=== PATIENT | male | born 1980 ===

== ENCOUNTER 2018-01-02 13:00 | Inpatient (IN) | payer OTHER ==
[~2018-01-02] VITALS: Ht 170.2 cm; Wt 126.8 kg
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
[2018-01-02 14:39] VITALS: BP 121/72
[2018-01-02 19:54] VITALS: BP 114/72
[2018-01-02] MEDS ORDERED: TOPAMAX100 M1 PO (20:46)
[2018-01-02] MEDS ORDERED: MULTIVITAMINS1 EAC9 PO (20:47)
[2018-01-02] MEDS ORDERED: OSTERA TABLET1 EACH (20:48)
[2018-01-02] MEDS ORDERED: OMEGA 3-6-9 11200 MG (20:52)
[2018-01-03 07:35] VITALS: BP 140/92
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
--- NOTE | 2018-01-03 16:19 | SOCIAL WORKER PROG NOTE PSYCH ---
Hernando Oro 01/03/18 1617: Social Work Progress Note Progress Note I Krishna Oro (PMO BUSINESS ANALYST [employer]) completed a social history with Jhonatan this afternoon he was calm and cooperative He appeared well groomed and was wearing hospital scrubs.
--- NOTE | 2018-01-03 16:54 | SOCIAL WORKER PROG NOTE PSYCH ---
Social Work Progress Note Progress Note This selling underwriter met with patient. Patient reports increased depression due to an upcoming anniversary of his grandmother's ; "my best friend." He denies SI. He reports occassional HI when feeling aggrevated, however, denies that this is towards anyone in particular and does not have a plan. He agreed to immediately inform staff if feeling unsafe here. He denied any current substance use and reported past MJ and alcohol use. Patient requested that this selling underwriter contact his grant officer and therapist next week.
[2018-01-03 20:03] VITALS: BP 150/78
[2018-01-04 07:45] VITALS: BP 136/83
--- NOTE | 2018-01-04 08:35 | CP SOUTH PROGRESS NOTE PSYCH ---
Psych (Inpt) Progress Note Progress Note Vital Signs Date Time Temp Pulse B/P 01/04 0745 98.3 87 136/83 01/03 2003 98.6 96 150/78 Mental Status Examination Steady gait, Patient is cooperative calm, Normal psychomotor activity. No abnormal behaviors, Talkative with mild pressure, Full range of affect, he reported that he's feeling calmer and not frustrated or angry today, He denied thinking of suicide today, denied thinking of homicide or violence today, He denied hallucinations, He denied feeling paranoid, there were no specific delusions during the interview, coherent, there was no thought disorder Impaired insight, Questionable judgment, He was alert and oriented to time place and person. Seems to have minor difficulties with information processing. No evidence of short-term memory impairment. 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 as well as posttraumatic stress disorder Impulse control disorder rule out neurocognitive disorder Treatment Plan: Cholecalciferol 1,000 IU DAILY Diazepam 10 MG AT BEDTIME Fish Oil 2,100 MG DAILY Gabapentin 600 MG TID Lorazepam 2 MG Q6P PRN Naproxen 500 MG BID PRN 01/02 1345 AC Prazosin HCl 2 MG AT BEDTIME Assets/Strengths Patient Identified Assets/Strengths: The patient is likable, is self advocating and resourceful, and honest Impression/Plan Impression and Plan: 37-year-old single black male who was admitted after he was taken to [facility] emergency room in [place] and since they have no had no beds he was transferred to [facility]'s inpatient psychiatry. 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 Looks like it was prescribed at one point to help him lose weight. But he is not interested in this medication and it was therefore discontinued and Patient also does not want Seroquel because she reported that he took multiple medications that caused him to gain weight and race his blood sugars. Which was an appropriate concern. Patient complained that he has always asked for medications for anxiety which is very intense and that he was always been frustrated by people refusing to prescribe for him medications that help his anxiety Therefore I gave the patient 1 dose of diazepam 10 mg Type with the patient on a regular regimen of diazepam 10 mg at bedtime I will evaluate rather reevaluate the patient tomorrow to discuss other options with him
[2018-01-04 20:08] VITALS: BP 147/96
[2018-01-05 07:48] VITALS: BP 141/78
--- NOTE | 2018-01-05 08:34 | CP SOUTH PROGRESS NOTE PSYCH ---
Psych (Inpt) Progress Note Progress Note Vital Signs Date Time Temp Pulse B/P 01/05 0748 97.5 86 141/78 01/04 2244 93 147/96 Mental Status Examination Pt. was cooperative calm, normal psychomotor activity. The patient has a warped sense of humor and was making animal sounds in in the kitchen area for almost 15 minutes despite given social cues to stop because it was not fun anymore. It did not seem to be psychotic. The patient was very talkative with pressure, Full range of affect, he reported that he's feeling calmer and not frustrated or angry today. He denied thinking of suicide today, denied thinking of homicide or violence today, He denied hallucinations, however, he described what sounded like hearing his own thoughts. He also described what seems to be like paranoia although he denied feeling paranoid, there were no specific delusions during the interview, coherent, there was no thought disorder. Impaired insight, Questionable judgment , He was alert and oriented to time place and person. Seems to have minor difficulties with information processing. No evidence of short-term memory impairment. It is not clear whether he has no average intelligence or multiple learning disabilities. Assessment: 37-year-old single Black- male who was admitted via [facility] emergency room because of voicing thoughts of suicide. He has been denying thoughts of suicide is since his arrival to the inpatient unit at [facility]. He historically has a diagnosis of a bipolar disorder. On further interview interviewing today, it seems like he may have schizoaffective disorder, bipolar type Diagnoses (updated 01/05/2018): Schizoaffective disorder bipolar type. No average intelligence or multiple learning disabilities. 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
[2018-01-05 19:38] VITALS: BP 142/86
[2018-01-06 07:47] VITALS: BP 113/67
--- NOTE | 2018-01-06 15:36 | CP SOUTH PROGRESS NOTE PSYCH ---
Psych (Inpt) Progress Note Progress Note Include the following elements, when applicable: Involvement in the active treatment of the patient with behavioral observations of the patient and the patient's response to the treatment. Review of the ongoing treatment process in the context of the treatment plan. Indication of how multi-disciplinary staff members are carrying out the treatment plan. Plans for future interventions and recommendations for revision of the treatment plan. Liaison with other physicians/providers. Progress Note: ["I am good, there is nothing wrong with me". The patient reports that Trilafon has helped with his agitation. He reports that he is sleeping and eating well. He is not having any thoughts of hurting himself or anybody else. He is frustrated with his living situation and intends to try and change this. He is also frustrated with his providers at [facility]. The patient is tolerating his medication without side effects. Discussed the fact that he is on a lot of medications but the patient reports that "I have not felt this good in a long time". Mental status examination reveals an overweight 37-year-old -H[place]ian male wearing hospital scrubs. He was encountered checking with peers in the dining room. He was pleasant and appropriate with good eye contact. Speech was normal in rate, rhythm, volume and tone. He described his mood as "good". His affect was within normal range. He was not suicidal or homicidal. Thought process was normal in tempo and stream. Form was concrete. There were no delusions or obsessions. Attention and concentration were good. There is no perceptual abnormality. Impulse control was good. Recent and remote memory intact. Patient's intelligence level is likely average, fund of knowledge average, use of language appropriate. Insight is fair and judgment unimpaired. Assessment: The patient appears to be responding well to his current medication regime. He is not suicidal or homicidal. His behavior is in good control. There are no psychotic symptoms. He is tolerating his medications well without side effects. Although she does not like his current housing he accepts that he will need to return there and explore alternatives with the help of his family service caseworker. Current medications: Gabapentin 900 mg p.o. 3 times daily Perphenazine 4 mg p.o. twice daily MiraLAX 17 g p.o. daily Colace 100 mg p.o. 3 times daily Terazosin 2 mg p.o. nightly Diazepam 10 mg p.o. nightly Lactobacillus 1 p.o. twice daily Naprosyn 500 mg p.o. twice daily as needed Fish oil 2100 mg p.o. daily Vitamin D 1000 international units daily Treatment plan: Continue medication as ordered. The patient is stable and will be discharged tomorrow back to care.
--- NOTE | 2018-01-06 16:35 | SOCIAL WORKER PROG NOTE PSYCH ---
Social Work Progress Note Progress Note The services requested require additional review. You will be contacted regarding the status of this request if further information is needed. An authorization decision will be made within the required timeframes and details of that decision may be found under the member's authorization history. Member Name Member ID Member Subscriber Name Subscriber ID OMER BOOTHE [id number] OMER BOOTHE [id number] Pended Authorization # Client Authorization # Type of Request [id number] CONCURRENT Date of Admission/ Start of Services Requested From Submission Date 01/02/2018 01/06/2018 01/06/2018 Level of Service Type of Service Level of Care Type of Care INPATIENT/HLOC [facility] Inpatient [facility]patient [facility] - Inpatient Hospital Reason Code P76 Provider Name & Address Provider ID Provider Alternate ID NPI # for Authorization VIVIAN GAUTHIER [id number] [place] [id number]
--- NOTE | 2018-01-06 18:38 | SOCIAL WORKER PROG NOTE PSYCH ---
Social Work Progress Note Progress Note This keno writer / runner met with patient. Patient discussed anxieties about discharging tomorrow and stated that he felt comfortable on this unit. He discussed enjoying attending groups, however, did not want to attend groups outpatient as he struggled to leave his apartment. Patient denied SI/HI today and discussed having previous AH in which he felt that he was being laughed at. He denied having these today. When asked about previous "HI" patient stated that he has thoughts to "lash out at people," though denies any plan or specific individual that this is towards. Patient identified "therapy" that he engages in on his own - specifically reading books such as oriental orthodox material or self help books. Patient identified having made improvement since admissions and states that he feels that he is at baseline. He requested that this keno writer / runner follow up with his probation office and his clinician. This keno writer / runner spoke with patient's employee service officer, Vianey Snell ([phone]), with [facility]. She described his behaviors as "borderline and manipulative." She shared that the patient believes that he will complete probation early (Jun 2018) however is not likely to do so if he continues to be noncompliant with treatment. If this is the case, he will be anticipated to complete probation in Jun 2019. Vianey was informed that patient may discharge tomorrow (01/07/18) and will return to [facility] for outpatient services. This keno writer / runner spoke with Grant Florian LCSW at [facility] ([phone]) where patient receives outpatient treatment. We discussed symptoms and treatment including barriers to treatment. He was informed that patient is refusing IOP and groups and would only like to return to individual therapy, case management and medication management. Grant shared that the patient minimally participates in treatment and often does not want to meet with his physicians/prescribers. He stated that the patient is unhappy with his living situation, but is unwilling to accept assistance with exploring alternatives as the patient believes that he will complete probation in April of 2018. This keno writer / runner relayed that information to Grant from the patient's PO regarding this matter, to which Grant was familiar and aware. Grant stated that the patient will not walk to [facility] alone and is often accompanied by the family preservation caseworker, Surjit. Grant was informed of anticipated discharge tomorrow and provided the following appointments (which the patient accepted): -Grant Iniguez LCSW, Individual therapy appointment: 01/15/18, at 1: 45pm -Dr. Campa, Medication appointment: 01/15/18, at 1pm -Case Management with Surjit: Surjit will contact the patient to schedule an appointment.
[2018-01-06 20:01] VITALS: BP 152/88
[2018-01-07 07:23] VITALS: BP 145/89
[2018-01-07] MEDS ORDERED: GABAPENTIN300 M2 PO (08:27)
[2018-01-07] MEDS ORDERED: PRAZOSIN HCL2 M1 PO (08:27)
[2018-01-07] MEDS ORDERED: OMEGA-3 1,0501 EACH PO (08:27)
[2018-01-07] MEDS ORDERED: DIAZEPAM5 M1 PO (08:27)
[2018-01-07] MEDS ORDERED: PERPHENAZINE4 M1 PO (08:27)
[2018-01-07] MEDS ORDERED: GABAPENTIN600 M1 PO (08:27)
--- NOTE | 2018-01-07 08:38 | Patient Discharge Instructions ---
Psych Discharge Inst General Discharge Information Reason for Admission: poor impulse control Psy Discharge Primary Diag+ schizoaffective disorder Psy Discharge Secondary Diag+ impulse control disorder Summary Tests/Major Procedures AT [facility] 01/01/19: CBC normal: elevated glucose 162 rest of BMP normal; Cholesterol 160. TGs 93, HDL 37, LDL 104 Studies Pending at DC: Glycosylated Hemoglobin Patient Instructions Contact Information Your Psychiatrist on [facility] was Patti Keyes MD * If you are experiencing an emergency related to this hospitalization, please call [phone] to contact the treating psychiatrist or the psychiatrist-on- call. * To Request a copy of your medical records, please contact the Medical Records Department at [phone]. * To request results of studies pending at the time of discharge, please call [phone]. * Continue your Medications until directed to stop by your Healthcare provider. General Medication Information Please continue to take your new medications and your continued home medications , unless otherwise indicated on your discharge medication list, or unless directed by your MD or OBSTETRICIAN to stop them. Special Instructions Diet Regular Activity As Tolerated - Tobacco Use Treatment Offered Post DC Medications Offered: Not Applicable Post DC Tobacco Treatment Plan: Not Applicable - EtOH/Drug Use D/O Treatment Offered Post DC Medications Offered: NA-No EtOH/Drug Use D/O Post DC EtOH/SubAbuse [place] Plan: NA-No EtOH/Drug Use D/O Advance Directives Does the Patient have Medical Advance Directives No/Refused further info Does Pt have Psychiatric Advance Directives? No/Refused further info Does Patient have a Designated Surrogate Decision Maker: No Information About Psychiatric Advance Directives Provided? Refused Discharge Plan Post Hospital Treatment Plan: [facility] Follow up with PCP re elevated glucose.
[2018-01-07] MEDS ORDERED: DIAZEPAM10 M1 PO (10:34)
--- NOTE | 2018-01-07 10:35 | DISCHARGE SUMMARY REPORT-PSYCH ---
Visit Information Visit Dates/Diagnosis' Admission Date: 01/02/18 Discharge Date: 01/07/18 Reason for Admission: poor impulse control, depression and suicidal ideation Psy Discharge Primary Diag: schizoaffective disorder Psy Discharge Secondary Diag: impulse control disorder, PTSD (Borderline intellectual functi) Hospital Course Significant Lab Findings: At [facility] 01/01/19: CBC normal: elevated glucose 162 rest of BMP normal; Cholesterol 160. TGs 93, HDL 37, LDL 104 Refused lab draw for HbA1c at [facility] 01/07 Course Complications: None Consultations: Seen by hospitalist on admission for full review of systems and physical examination Allergies: Coded Allergies: carbamazepine (From TEGRETOL) (Intermediate, RASH/ITCH 01/02/18) haloperidol (From HALDOL) (Intermediate, RASH/ITCH 01/02/18) phenytoin (From DILANTIN) (Intermediate, RASH/ITCH 01/02/18) Hospital Course/TX Response: 37-year-[facility] of [facility] ideation in the context of the anniversary of his grandmother's . He also reported that he was having difficulty with impulse control and was afraid he was going to explode and hurt somebody. He had no specific person or means in mind. The patient was treated by Dr. Cristopher Boone. From review of his history he diagnosed the patient with schizoaffective disorder bipolar type as well as impulse control disorder in the context of borderline intellectual functioning. The patient was in good behavioral control throughout his admission. Intermittently he reported feeling that he was going to "blow" but responded to either verbal redirection are as needed medication. He was not suicidal at any time. He was commenced on diazepam at night as well as prazosin for symptoms of PTSD. Gabapentin was increased for anxiety. Perphenazine was added. The patient responded well to this combination of medications stating "I have not felt this good in years". As mentioned he was not suicidal at any time during his admission, now with a runny psychotic symptoms. Sleep and appetite were normal throughout. Overall the patient was pleasant and well engaged with peers. The patient was seen by me on the morning of discharge. He was somewhat anxious about returning home and expresses anxiety is agitation. He was not suicidal or homicidal. There are no psychotic symptoms. Thought process was organized. The patient was agreeable to returning to his treatment team at [facility] though he reports some discord with his psychiatrist. He will be transported home by his disability case manager. He will return to live in his apartment. Medications on discharge: Med Cholecalciferol 1,000 IU PO DAILY 01/03/18 0900 Diazepam 10 MG PO AT BEDTIME 01/03/18 2100 Fish Oil 2,100 MG PO DAILY 01/03/18 0900 Gabapentin 900 MG PO TID 01/05/18 1400 Multivitamins Therapeutic 1 TAB PO DAILY 01/03/18 0900 Perphenazine 4 MG PO BID 01/05/18 0913 Prazosin HCl 2 MG PO AT BEDTIME 01/04/18 2100 Discharge HBIPS - Tobacco Use Treatment Offered Post DC Medications Offered: Script Given-See Med List Post DC Tobacco Treatment Plan: Not Applicable - EtOH/Drug Use D/O Treatment Offered Post DC Medications Offered: NA-No EtOH/Drug Use D/O Post DC EtOH/SubAbuse TX Plan: NA-No EtOH/Drug Use D/O Metabolic Screening - Screen if on a Neuroleptic Medication - Metabolic screening should include: - Blood Pressure, BMI, Glucose or Hgb A1c, & a - Lipid profile from within the past 365 days. Metabolic Screening () Not Applicable, patient not on a neuroleptic. OR () Patient on a neuroleptic(s) . Enter below results for Hemoglobin A1C, and lipid panel if obtained during the last 365 days. BMI: 43.800 Blood Pressure: 145/89 Laboratory Results From [facility] (If applicable): At [facility] 01/01/19: Cholesterol 160. TGs 93, HDL 37, LDL 104 Refused lab draw for HbA1c at [facility] 01/07 random glucose elevated at 160 Discharge Instructions General Discharge Information Multiple Neuroleptics: () Not Applicable OR Document below three failed attempts at monotherapy, or a plan to taper to monotherapy, or augmentation of Clozapine. () Discharge Diet Regular Discharge Activity As Tolerated DC Disposition: Discharged home Referrals Ordered Referrals Provider Referral 01/15/18 For Providers: [Grant Iniguez LCSW] For Groups: [[facility]] Grant Iniguez LCSW DMS [address] [place] [address] Individual therapy appointment: 01/15/18, at 1:45pm Provider Referral 01/15/18 For Providers: [[facility]] For Groups: [Dr. Campa] Dr. Campa [facility] [address] [place], [place] [phone] Medication appointment: 01/15/18, at 1pm Provider Referral For Providers: [[facility]] For Groups: [Case Management] Case Management [facility] [address], [place] [phone] Surjit disability case manager, will contact you to schedule an appointment. Prescriptions Stop taking the following medications: Topiramate (Topamax) 100 MG TABLET ORAL DAILY Fish Oil/Borage/Flax/Om3,6,9#1 ([place] 3-6-9 1,200 MG Softgel) (Unknown Strength) CAPSULE DAILY Continue taking these medications: Multiple Vitamin (Multivitamins) 1 EACH TABLET 1 ORAL DAILY Comments: Last Taken:01/07/18 Time:9AM Vit D3 & K/Berberine HCl/Hops (Ostera Tablet) (Unknown Strength) TABLET Unknown Dose Comments: Last Take01/07/18 Time:9AM Start taking the following new medications: [place]-3/Dha/Epa/Dpa/Fish Oil ([place]-3 1,050 MG Softgel) 1,050-1200 CAPSULE 2,100 Milligram ORAL DAILY Qty = 30 No Refills Comments: Last Taken:01/07/18 Time:9AM Prazosin HCl (Prazosin HCl) 2 MG CAPSULE 2 Milligram ORAL AT BEDTIME Qty = 15 No Refills Comments: Last Taken:01/06/18 Time:10PM Gabapentin (Gabapentin) 300 MG CAPSULE 900 Milligram ORAL THREE TIMES DAILY Qty = 42 No Refills Comments: Last Taken:01/07/18 Time:9AM Perphenazine (Perphenazine) 4 MG TABLET 4 Milligram ORAL TWICE DAILY Qty = 28 No Refills Comments: Last Taken:01/07/18 Time:9AM Diazepam (Diazepam) 10 MG TABLET 1 Tablet ORAL 2200 Qty = 14 No Refills Studies Pending at Discharge None Copies To: .
--- NOTE | 2018-01-07 10:54 | PN- Att Addend ---
Attending Addendum Attending Brief Note Patient refused blood draw for HbA1c on 01/07/18. Advised to follow up with PCP.
--- NOTE | 2018-01-07 12:10 | SOCIAL WORKER PROG NOTE PSYCH ---
Social Work Progress Note Progress Note Dayana arranged confirmation #[id number]
--- NOTE | 2018-01-07 17:13 | SOCIAL WORKER PROG NOTE PSYCH ---
See Addendum Social Work Progress Note Progress Note This publicity writer met with patient. He was lying in bed reading a book. He stated that he felt aggravated when another patient interrupted him during a group and decided to leave the room in order to manage the aggrevation. Patient denied SI /HI/hallucinations and today states that he feels ready to discharge. He also denied any urges to self harm. He identified a safety plan in which he would "call the hospital and talk to family." He accepted the crisis numbers and warm lines and stated that he was agreeable and comfortable with using them as well. He identified reading and writing as coping skills. He denied any access to guns and requested a medical cab ride home if Grant Florian ([facility] clinician) could not provide a ride today. We reviewed the discharge plans ([facility] appointments) and patient stated that he would call his finance officer. He also requested that this publicity writer inform his PO and Grant Iniguez of discharge today. This publicity writer contacted Grant regarding a ride, however, Grant (nor other staff members at [facility] were available) and patient accepted a [facility] ride. 4:59pm: This publicity writer left a vm for PO Vianey Snell ([phone]) confirming today's discharge as was discussed yesterday 5:00pm: This publicity writer left a vm for Grant Iniguez ([phone]) confirming today's discharge and informing that the patient was scheduled a [employer] ride A call back number was provided to both Vianey and Grant in the above vm's.
== END 2018-01-07 13:29 | DRG 885 ==
LOC: CP SOUTH 13:00
DX: F25.9 Schizoaffective disorder, unspecified (principal); F63.9 Impulse disorder, unspecified
CPT/HCPCS: J1630